=== PATIENT | male | born 1990 | race Two or more races ===

== ENCOUNTER 2022-06-03 22:13 | Inpatient (IN) | payer OTHER ==
[~2022-06-03] VITALS: Ht 180.3 cm; Wt 89.3 kg
[2022-06-04 01:30] VITALS: BP 145/97
[2022-06-04 02:15] VITALS: BP 145/97
[2022-06-04] MEDS ORDERED: ACETAMINOPHEN 325 MG TAB PO PRN (03:45)
[2022-06-04] MEDS ORDERED: IBUPROFEN 600 MG TAB PO PRN (03:45)
[2022-06-04] MEDS ORDERED: NITROGLYCERIN 0.4 MG SL TAB SL PRN (03:45)
[2022-06-04] MEDS ORDERED: MORPHINE SULFATE INJ 2 MG/ml SYRG IV PRN (03:45)
[2022-06-04] MEDS: MORPHINE SULFATE INJ 2 MG/ml SYRG IV PRN ×2 (04:29→08:32)
[2022-06-04] MEDS: ONDANSETRON HCL 4 MG/2 ML VIAL IV PRN ×3 (04:29→23:18)
[2022-06-04] MEDS: cefTRIAXone 1GM/50ML D5W 50 ML IV SCH (04:29)
[2022-06-04] MEDS: SODIUM CHLOR 0.9% PF (SALINE LOCK) 10ML VIAL/SYR IV SCH ×3 (05:47→22:28)
[2022-06-04 06:22] LABS: Basophils # (auto) 0 10 ^3/uL (0-0.2); Basophils % (auto) 0.3 % (0.0-2.0); Eosinophils # (auto) 0.1 10 ^3/uL (0-0.8); Eosinophils % (auto) 0.5 % (0.0-7.0); Hematocrit 35.3 % (41.0-53.0); Hemoglobin 12.4 g/dL (13.5-17.5); Lymphocytes # (auto) 1.2 10 ^3/uL (0.4-5.4); Lymphocytes % (auto) 11.4 % (10.0-50.0); Mean Corpuscular Hemoglobin 29.5 pg (28.0-32.0); Mean Corpuscular Hgb Conc. 35.1 g/dL (32.0-36.0); Mean Corpuscular Volume 84.1 fL (80.0-100.0); Monocytes # (auto) 1.1 10 ^3/uL (0-1.3); Monocytes % (auto) 10.6 % (0.0-12.0); Neutrophils # (auto) 8.2 10 ^3/uL (1.6-8.6); Neutrophils % (auto) 77.2 % (37.0-80.0); Red Cell Distribution Width 13.7 % (11.8-14.3); White Blood Cell 10.6 10^3/uL (4.4-10.8)
[2022-06-04 06:32] LABS: Albumin 3.4 g/dL (3.4-5.0); Calcium 8.5 mg/dL (8.5-10.1); Potassium 3.8 mmol/L (3.5-5.1)
[2022-06-04 06:36] LABS: BUN/Creatinine Ratio 6.9; Bilirubin, Total 1.1 mg/dL (0.2-1.0); Total Protein 6.2 g/dL (6.4-8.2)
[2022-06-04] MEDS: FAMOTIDINE (10MG/ML) 2ML VL IV SCH (08:32)
[2022-06-04 09:16] LABS: Urine Bacteria NONE SEEN /hpf (None Seen); Urine Blood Negative /uL (Negative); Urine Specific Gravity 1.008 (1.001-1.035); Urine WBC 3 /hpf (0 - 3)
[2022-06-04 09:21] VITALS: BP 149/88
[2022-06-04] MEDS: HYDROmorphone HCL 2 MG/ML VL/or syr IV PRN ×4 (10:46→23:25)
[2022-06-04] MEDS ORDERED: MANNITOL FTV 25% 12.5 GM/50 ML 50 ML IV ONE (11:45)
[2022-06-04 13:00] VITALS: BP_SYST 150; BP_SYST 164; BP_DIAS 91; BP_DIAS 98
[2022-06-04] MEDS: TAMSULOSIN HYDROCHLORIDE 0.4 MG CAP PO SCH (17:27)
[2022-06-04 22:00] VITALS: BP 132/79
[2022-06-05] MEDS: ONDANSETRON HCL 4 MG/2 ML VIAL IV PRN ×4 (04:11→16:28)
[2022-06-05] MEDS: HYDROmorphone HCL 2 MG/ML VL/or syr IV PRN ×4 (04:18→16:34)
[2022-06-05 05:00] VITALS: BP 145/89
[2022-06-05] MEDS: SODIUM CHLOR 0.9% PF (SALINE LOCK) 10ML VIAL/SYR IV SCH ×3 (06:12→22:18)
[2022-06-05 06:24] LABS: Potassium 3.9 mmol/L (3.5-5.1)
[2022-06-05 06:29] LABS: Albumin 3.4 g/dL (3.4-5.0); BUN/Creatinine Ratio 8.5; Calcium 8.6 mg/dL (8.5-10.1)
[2022-06-05 06:31] LABS: Total Protein 5.9 g/dL (6.4-8.2)
[2022-06-05 07:29] LABS: Basophils # (auto) 0.1 10 ^3/uL (0-0.2); Basophils % (auto) 0.6 % (0.0-2.0); Eosinophils # (auto) 0 10 ^3/uL (0-0.8); Eosinophils % (auto) 0.4 % (0.0-7.0); Hematocrit 36.3 % (41.0-53.0); Hemoglobin 12.8 g/dL (13.5-17.5); Lymphocytes # (auto) 0.9 10 ^3/uL (0.4-5.4); Lymphocytes % (auto) 9.7 % (10.0-50.0); Mean Corpuscular Hemoglobin 29.5 pg (28.0-32.0); Mean Corpuscular Hgb Conc. 35.2 g/dL (32.0-36.0); Monocytes # (auto) 1.1 10 ^3/uL (0-1.3); Monocytes % (auto) 11.3 % (0.0-12.0); Neutrophils # (auto) 7.6 10 ^3/uL (1.6-8.6); Nucleated Red Blood Cells % 0.1 %; Red Blood Cells 4.32 10^6/uL (4.5-5.90); Red Cell Distribution Width 13.4 % (11.8-14.3); White Blood Cell 9.8 10^3/uL (4.4-10.8)
[2022-06-05] MEDS: cefTRIAXone 1GM/50ML D5W 50 ML IV SCH (08:15)
[2022-06-05] MEDS: FAMOTIDINE (10MG/ML) 2ML VL IV SCH (08:15)
[2022-06-05 09:00] VITALS: BP 136/79
[2022-06-05 13:00] VITALS: BP 141/81
[2022-06-05] MEDS ORDERED: MANNITOL FTV 25% 12.5 GM/50 ML 50 ML IV ONE (13:45)
[2022-06-05] MEDS ORDERED: MORPHINE SULFATE INJ 2 MG/ml SYRG IV PRN (15:45)
[2022-06-05] MEDS ORDERED: KETOROLAC TROMETH 30 MG/ML 1ML VIAL IV ONE (15:45)
[2022-06-05] MEDS: TAMSULOSIN HYDROCHLORIDE 0.4 MG CAP PO SCH (18:49)
[2022-06-05 22:00] VITALS: BP 122/73
[2022-06-06] MEDS: ONDANSETRON HCL 4 MG/2 ML VIAL IV PRN ×4 (02:07→19:20)
[2022-06-06] MEDS: HYDROmorphone HCL 2 MG/ML VL/or syr IV PRN ×4 (02:08→22:09)
[2022-06-06 05:00] VITALS: BP 120/82
[2022-06-06] MEDS: SODIUM CHLOR 0.9% PF (SALINE LOCK) 10ML VIAL/SYR IV SCH ×3 (05:38→22:09)
[2022-06-06] MEDS ORDERED: MANNITOL FTV 25% 12.5 GM/50 ML 50 ML IV ONE (09:00)
[2022-06-06] MEDS: FAMOTIDINE (10MG/ML) 2ML VL IV SCH (09:09)
[2022-06-06] MEDS: cefTRIAXone 1GM/50ML D5W 50 ML IV SCH (09:09)
[2022-06-06] MEDS: HYDROcodone-ACET 5/325MG TAB PO PRN ×2 (09:09→17:37)
[2022-06-06 13:00] VITALS: BP 126/81
[2022-06-06] MEDS: KETOROLAC TROMETH 30 MG/ML 1ML VIAL IV PRN (13:50)
[2022-06-06] MEDS ORDERED: TERB250T66 PO (15:16)
[2022-06-06] MEDS ORDERED: OMEP20TA PO (15:16)
[2022-06-06] MEDS ORDERED: FEXO-90 PO (15:16)
[2022-06-06] MEDS: DOCUSATE SOD 100 MG CAP PO PRN (15:44)
[2022-06-06 17:00] VITALS: BP 135/82
[2022-06-06] MEDS: TAMSULOSIN HYDROCHLORIDE 0.4 MG CAP PO SCH (17:37)
[2022-06-06 22:00] VITALS: BP 118/84
[2022-06-06] MEDS: SODIUM CHLORIDE 0.9% 1,000 ML IV SCH (22:48)
[2022-06-07] MEDS: SODIUM CHLORIDE 0.9% 1,000 ML IV SCH ×3 (04:15→18:10)
[2022-06-07 05:00] VITALS: BP 130/88
[2022-06-07] MEDS: ONDANSETRON HCL 4 MG/2 ML VIAL IV PRN (06:01)
[2022-06-07] MEDS: KETOROLAC TROMETH 30 MG/ML 1ML VIAL IV PRN ×2 (06:01→18:11)
[2022-06-07] MEDS: SODIUM CHLOR 0.9% PF (SALINE LOCK) 10ML VIAL/SYR IV SCH ×3 (06:01→21:29)
[2022-06-07] MEDS: DOCUSATE SOD 100 MG CAP PO PRN (06:08)
[2022-06-07 09:00] VITALS: BP 143/98
[2022-06-07] MEDS: FAMOTIDINE (10MG/ML) 2ML VL IV SCH (10:05)
[2022-06-07] MEDS: cefTRIAXone 1GM/50ML D5W 50 ML IV SCH (10:05)
[2022-06-07 13:00] VITALS: BP 147/89
[2022-06-07 16:54] VITALS: BP 147/98
[2022-06-07] MEDS: TAMSULOSIN HYDROCHLORIDE 0.4 MG CAP PO SCH (18:10)
[2022-06-07] MEDS ORDERED: POLYETHYLENE GLYCOL 17 GM PWDR PO ONE (18:15)
[2022-06-07 20:00] VITALS: BP 124/88
[2022-06-08] MEDS: SODIUM CHLORIDE 0.9% 1,000 ML IV SCH ×4 (00:55→21:08)
[2022-06-08 05:00] VITALS: BP 124/90
[2022-06-08] MEDS: SODIUM CHLOR 0.9% PF (SALINE LOCK) 10ML VIAL/SYR IV SCH ×3 (05:45→21:09)
[2022-06-08] MEDS: cefTRIAXone 1GM/50ML D5W 50 ML IV SCH (08:32)
[2022-06-08] MEDS: FAMOTIDINE (10MG/ML) 2ML VL IV SCH (08:33)
[2022-06-08] MEDS: HYDROmorphone HCL 2 MG/ML VL/or syr IV PRN ×2 (08:35→20:29)
[2022-06-08] MEDS: ONDANSETRON HCL 4 MG/2 ML VIAL IV PRN ×2 (08:35→20:26)
[2022-06-08] MEDS: DOCUSATE SOD 100 MG CAP PO PRN (08:43)
[2022-06-08 08:59] VITALS: BP 141/97
[2022-06-08 13:00] VITALS: BP 129/82
[2022-06-08 14:03] LABS: Calcium 8.5 mg/dL (8.5-10.1); Potassium 4.1 mmol/L (3.5-5.1)
[2022-06-08 14:04] LABS: BUN/Creatinine Ratio 8.8
[2022-06-08 14:31] LABS: Urine Bacteria NONE SEEN /hpf (None Seen); Urine Blood 2+ /uL (Negative); Urine WBC 18 /hpf (0 - 3)
[2022-06-08 14:31] LABS: Basophils # (auto) 0.1 10 ^3/uL (0-0.2); Basophils % (auto) 0.8 % (0.0-2.0); Eosinophils # (auto) 0.1 10 ^3/uL (0-0.8); Eosinophils % (auto) 1.3 % (0.0-7.0); Hematocrit 36.4 % (41.0-53.0); Hemoglobin 12.3 g/dL (13.5-17.5); Lymphocytes # (auto) 1.3 10 ^3/uL (0.4-5.4); Lymphocytes % (auto) 17.6 % (10.0-50.0); Mean Corpuscular Hemoglobin 28.5 pg (28.0-32.0); Mean Corpuscular Hgb Conc. 33.9 g/dL (32.0-36.0); Mean Corpuscular Volume 84.2 fL (80.0-100.0); Monocytes # (auto) 0.9 10 ^3/uL (0-1.3); Monocytes % (auto) 12.4 % (0.0-12.0); Neutrophils % (auto) 67.9 % (37.0-80.0); Red Blood Cells 4.32 10^6/uL (4.5-5.90); Red Cell Distribution Width 13.4 % (11.8-14.3); White Blood Cell 7.3 10^3/uL (4.4-10.8)
[2022-06-08] MEDS: KETOROLAC TROMETH 30 MG/ML 1ML VIAL IV PRN (15:36)
[2022-06-08 16:37] VITALS: BP 145/94
[2022-06-08] MEDS: TAMSULOSIN HYDROCHLORIDE 0.4 MG CAP PO SCH (18:02)
[2022-06-08 20:00] VITALS: BP 138/97
[2022-06-08 22:00] VITALS: BP 133/87
[2022-06-09] MEDS: ONDANSETRON HCL 4 MG/2 ML VIAL IV PRN ×2 (03:27→16:30)
[2022-06-09] MEDS: KETOROLAC TROMETH 30 MG/ML 1ML VIAL IV PRN ×2 (03:27→12:00)
[2022-06-09] MEDS: SODIUM CHLORIDE 0.9% 1,000 ML IV SCH ×4 (04:38→23:35)
[2022-06-09 05:00] VITALS: BP 133/79
[2022-06-09 05:03] LABS: Basophils # (auto) 0.1 10 ^3/uL (0-0.2); Basophils % (auto) 0.7 % (0.0-2.0); Eosinophils # (auto) 0.2 10 ^3/uL (0-0.8); Eosinophils % (auto) 2.4 % (0.0-7.0); Hematocrit 36.3 % (41.0-53.0); Hemoglobin 12.5 g/dL (13.5-17.5); Lymphocytes # (auto) 1.3 10 ^3/uL (0.4-5.4); Lymphocytes % (auto) 16.3 % (10.0-50.0); Mean Corpuscular Hemoglobin 28.5 pg (28.0-32.0); Mean Corpuscular Hgb Conc. 34.4 g/dL (32.0-36.0); Mean Corpuscular Volume 82.7 fL (80.0-100.0); Monocytes % (auto) 12.3 % (0.0-12.0); Neutrophils # (auto) 5.3 10 ^3/uL (1.6-8.6); Neutrophils % (auto) 68.3 % (37.0-80.0); Red Blood Cells 4.39 10^6/uL (4.5-5.90); Red Cell Distribution Width 13.4 % (11.8-14.3); White Blood Cell 7.8 10^3/uL (4.4-10.8)
[2022-06-09] MEDS: SODIUM CHLOR 0.9% PF (SALINE LOCK) 10ML VIAL/SYR IV SCH ×3 (05:15→22:12)
[2022-06-09 05:19] LABS: INR 1.13 (0.9-1.15); Partial Thromboplastin Time 29.3 sec (24.6-33.4)
[2022-06-09] MEDS: FAMOTIDINE (10MG/ML) 2ML VL IV SCH (08:34)
[2022-06-09] MEDS: cefTRIAXone 1GM/50ML D5W 50 ML IV SCH (08:35)
[2022-06-09 09:00] VITALS: BP 138/93
[2022-06-09] MEDS ORDERED: MIDAZOLAM HCL 2MG/2ML 2ml VIAL (1mg/ml) ONE (11:20)
[2022-06-09] MEDS ORDERED: fentaNYL CITRATE 100 MCG/2 ML VL ONE (11:20)
[2022-06-09] MEDS ORDERED: DexAMETHasone SOD PHOS 10MG/1ML VIAL INJ ONE (11:21)
[2022-06-09] MEDS ORDERED: PROPOFOL 10 MG/ML 20 ML IV ONE (11:21)
[2022-06-09] MEDS ORDERED: ONDANSETRON HCL 4 MG/2 ML VIAL ONE (11:21)
[2022-06-09] MEDS ORDERED: SODIUM CHLORIDE LOCK 10 ML ONE (11:21)
[2022-06-09] MEDS ORDERED: MORPHINE SULFATE 4 MG/ML SYR/VIAL IV PRN (12:45)
[2022-06-09] MEDS ORDERED: METOCLOPRAMIDE HCL 5MG/ml INJ 2ml VIAL IV PRN (12:45)
[2022-06-09] MEDS ORDERED: HYDROmorphone HCL 2 MG/ML VL/or syr IV PRN (12:45)
[2022-06-09] MEDS ORDERED: fentaNYL CITRATE 100 MCG/2 ML VL IV PRN (12:45)
[2022-06-09] MEDS ORDERED: IOHEXOL 300 MG/ML 100ML BOTTLE IJ ONE (12:56)
[2022-06-09 13:00] VITALS: BP 140/97
[2022-06-09] MEDS: HYDROmorphone HCL 2 MG/ML VL/or syr IV PRN (16:30)
[2022-06-09 16:52] VITALS: BP 152/99
[2022-06-09] MEDS: TAMSULOSIN HYDROCHLORIDE 0.4 MG CAP PO SCH (18:05)
[2022-06-09 20:00] VITALS: BP 124/75
[2022-06-09 22:00] VITALS: BP 124/75
[2022-06-10 05:00] VITALS: BP 126/84
[2022-06-10] MEDS: SODIUM CHLOR 0.9% PF (SALINE LOCK) 10ML VIAL/SYR IV SCH ×2 (05:56→13:02)
[2022-06-10] MEDS: SODIUM CHLORIDE 0.9% 1,000 ML IV SCH ×2 (08:39→13:02)
[2022-06-10] MEDS: cefTRIAXone 1GM/50ML D5W 50 ML IV SCH (08:40)
[2022-06-10] MEDS: KETOROLAC TROMETH 30 MG/ML 1ML VIAL IV PRN (08:40)
[2022-06-10 09:00] VITALS: BP 133/94
[2022-06-10 13:00] VITALS: BP 132/91
[2022-06-10 16:40] VITALS: BP 133/74
== END 2022-06-10 18:27 | disposition home or self-care (01) | DRG 661 ==
LOC: WEST WING 06-04 01:24
PROVIDERS: ADMIT Internal Medicine; ATTEND Internal Medicine
PROC: BT161ZZ Fluoroscopy of Right Ureter using Low Osmolar Contrast (ICD-10-PCS; 2022-06-09)
PROC: 0TC68ZZ Extirpation of Matter from Right Ureter, Via Natural or Artificial Opening Endoscopic (ICD-10-PCS; 2022-06-09)
PROC: 0T768DZ Dilation of Right Ureter with Intraluminal Device, Via Natural or Artificial Opening Endoscopic (ICD-10-PCS; principal; 2022-06-09 13:23)
DX: N13.2 Hydronephrosis with renal and ureteral calculous obstruction (principal); J30.9 Allergic rhinitis, unspecified; D72.829 Elevated white blood cell count, unspecified; K21.9 Gastro-esophageal reflux disease without esophagitis; R91.1 Solitary pulmonary nodule; E87.5 Hyperkalemia; Z20.822 Contact with and (suspected) exposure to COVID-19
CPT/HCPCS: 36415; 74018; 74176; 76000; 76775; 80048; 80053; 81001; 83036; 85025; 85610; 85730; 86850; 86900; 86901; 87086; G0378; J0696; J1100; J1885; J2250; J2405; J2704; J3490

== ENCOUNTER → 2022-08-04 | Day surgery (SDC) | payer OTHER ==
[2022-08-02 09:44] LABS: Basophils # (auto) 0.1 10 ^3/uL (0-0.2); Basophils % (auto) 0.7 % (0.0-2.0); Eosinophils # (auto) 0 10 ^3/uL (0-0.8); Eosinophils % (auto) 0.6 % (0.0-7.0); Hematocrit 44.9 % (41.0-53.0); Hemoglobin 15.3 g/dL (13.5-17.5); Mean Corpuscular Hemoglobin 28.9 pg (28.0-32.0); Mean Corpuscular Hgb Conc. 34.1 g/dL (32.0-36.0); Mean Corpuscular Volume 84.6 fL (80.0-100.0); Monocytes # (auto) 0.6 10 ^3/uL (0-1.3); Monocytes % (auto) 8.4 % (0.0-12.0); Neutrophils # (auto) 4.7 10 ^3/uL (1.6-8.6); Neutrophils % (auto) 63.3 % (37.0-80.0); Nucleated Red Blood Cells % 0.1 %; Red Blood Cells 5.31 10^6/uL (4.5-5.90); Red Cell Distribution Width 14.2 % (11.8-14.3); White Blood Cell 7.4 10^3/uL (4.4-10.8)
[2022-08-02 09:52] LABS: Urine Bacteria NONE SEEN /hpf (None Seen); Urine Blood 2+ /uL (Negative); Urine Specific Gravity 1.007 (1.001-1.035); Urine WBC 15 /hpf (0 - 3)
[2022-08-02 10:06] LABS: INR 1.03 (0.9-1.15); Partial Thromboplastin Time 26.9 sec (24.6-33.4)
[2022-08-02 10:11] LABS: Albumin 4.4 g/dL (3.4-5.0); Calcium 9.4 mg/dL (8.5-10.1); Potassium 4.4 mmol/L (3.5-5.1)
[2022-08-02 10:14] LABS: Bilirubin, Total 1.1 mg/dL (0.2-1.0); Total Protein 7.7 g/dL (6.4-8.2)
[~2022-08-04] VITALS: Ht 180.3 cm; Wt 82.1 kg
[~2022-08-04] MED LIST: DexAMETHasone SOD PHOS 10MG/1ML VIAL INJ ONE; GLYCOPYRROLATE 0.2 MG/ML 1ML VIAL ONE; IOHEXOL 300 MG/ML 100ML BOTTLE IJ ONE; KETOROLAC TROMETH 30 MG/ML 1ML VIAL ONE; LIDOCAINE 2% (LOCAL ANESTH.) PF 5ml SDV ONE; ONDANSETRON HCL 4 MG/2 ML VIAL ONE; PROPOFOL 10 MG/ML 20 ML IV ONE; ceFAZolin 1GM/50ML 100 ML IV ONE
[2022-08-04 13:08] VITALS: BP 109/72
== END | disposition home or self-care (01) ==
LOC: SUR 09:11
PROVIDERS: ATTEND Urology
DX: Z46.6 Encounter for fitting and adjustment of urinary device (principal); N13.2 Hydronephrosis with renal and ureteral calculous obstruction; Z20.822 Contact with and (suspected) exposure to COVID-19
CPT/HCPCS: 36415; 52310; 80053; 81001; 85025; 85610; 85730; 87086; 88300; C1769; J0690; J1100; J1885; J2001; J2405; J2704; J7030; Q9967; U0003